=== PATIENT | female | born 1940 | race Caucasian/White ===

== ENCOUNTER 2023-09-02 14:17 | Inpatient (IN) | payer MEDICARE, OTHER, SELFPAY ==
[2023-09-02] VITALS (10 sets, daily range): BP systolic 126–157; BP diastolic 66–83; BMI 24.0; BMI 22.3
--- NOTE | 2023-09-02 09:57 | ED.GENMED ---
History of Present Illness
General
Chief Complaint: Heart Rate Problem
Source: patient and ambulance crew
Time Seen by Provider: 09/02/23 09:48
History of Present Illness
History of Present Illness:
83-year-old female with unknown past medical history from her assisted living facility for evaluation after her heart monitor reportedly showed 2 separate events of bradycardia this morning measuring around 30 bpm. Patient states she did not have
any symptoms this morning but did today she had chest discomfort last night but that this occurred while eating and that she normally has a history of dysphagia and pain in her chest/abdomen when swallowing. Patient notes she does not have any
symptoms now other than feeling that she needs to move her bowels. It is unclear as to why patient was wearing a heart monitor as she is not able to tell me who her aquatic performer is or why she had this placed in the first place.
Past History
Social History
Tobacco: Non-smoker
Alcohol: None
Drug: None
Living: assisted living
Review of Systems
Review of Systems
All Other Systems: ROS reviewed and negative except as documented in HPI and ROS
Phy Exam
Physical Exam
Physical Exam:
GENERAL: Alert , in no apparent distress
EYE: Clear conjunctiva
NECK: Supple
ENT: o/p clr, mmm.
CARDIAC: Irregular rate and rhythm, rate between the 60s and 70s
LUNGS: Clear breath sounds bilaterally, no acute respiratory distress, no wheezes/rales/rhonchi
ABDOMEN: Soft, without focal tenderness, no r/g, no cvat
NEUROLOGICAL: Alert and oriented x 3
SKIN: Warm and dry, skin intact.
MUSCULOSKELETAL: Bilateral lower extremity lymphedema is is chronic per patient, well perfused.
PSYCH: Normal and appropriate interaction.
Scores
Heart Failure Risk
Heart Failure Risk Score: Not Applicable
Heart Score for Chest Pain Patients
STEMI patient?: Not applicable
Withdrawal Assessment of Alcohol
Withdrawal Assessment Completed?: Not applicable
Course
Orders/Labs/Results
Orders:
Orders
09/02/23 09:56
Electrocardiogram (*1) Urgent
Reason for Study: Bradycardia / Tachycardia
EKG- Treatment ONCE
09/02/23 10:12
Complete Blood Count/With Diff Urgent
Comprehensive Metabolic Panel Urgent
Magnesium Urgent
Troponin I Urgent
09/02/23 10:58
TSH Urgent
Abnormal Lab Results
09/02/23
10:12
RBC 3.60 L 10^6/uL
(4.20-5.40)
Hgb 10.8 L g/dL
(12.0-16.0)
Hct 32.0 L %
(37.0-47.0)
Plt Count 561 H 10^3/uL
(130-400)
Abs Immat Gran (auto) 0.2 H 10^3/uL
(0-0.05)
Absolute Monos (auto) 1.0 H 10^3/uL
(0.1-0.6)
Immature Gran % 1.8 H %
(0-0.5)
Monocytes % 11.3 H %
(1.7-9.3)
Sodium 126 L mmol/L
(135-145)
Chloride 92 L mmol/L
(98-107)
Alkaline Phosphatase 449 H U/L
(38-126)
Total Protein 5.5 L g/dl
(6.3-8.2)
Albumin 2.8 L g/dl
(3.5-5.0)
09/02/23 10:12
09/02/23 10:12
Vital Signs
Initial and Last Documented VS:
Initial Vital Signs
BP
136/66
09/02/23 09:48
Last Documented Vital Signs
Temp Pulse Resp BP Pulse Ox
98.1 F 79 19 126/73 94
09/02/23 09:49 09/02/23 12:00 09/02/23 12:00 09/02/23 11:00 09/02/23 12:00
MDM/Problems Addressed
Differential Diagnosis Includes:
Cardiac dysrhythmia, valvular dysfunction, electrolyte disturbance, less concern for infectious etiology
MDM/Problems Addressed:
83-year-old female presenting the emergency department via EMS from shelter for evaluation of 2 separate episodes of bradycardia that reportedly occurred this morning according to patient's ZIO quality assurance monitor body. Patient was supposedly
asymptomatic this morning. Had questionable chest discomfort last night. No family at bedside presently to gather further history or information about patient's quality assurance monitor body. Will check labs, EKG and attempt to contact family to figure out
further care for patient.
*Pulse Oximetry
Patient hypoxic: no
*Immunochemist Interpretation
Rate: normal
*Critical Care Note
Total Time (30-74mins, 75-104mins- exclusive of procedures): Not Applicable
Patient Management
Discussion with other providers: Hospitalist and Claim Rep
Escalation/DeEscalation of care consider admission/obs:
11:33 AM: Patient's daughter is now at the bedside. Patient was admitted at [facility] 2 weeks ago with severe lower back pain. Was found to have a sacral fracture and while admitted was also found to have episodes of bradycardia so was
fitted for the ZIO heart monitor on . Daughter received a call from aquatic performer at [facility] cardiology that patient had 2 separate episodes of complete heart block, 1 lasting 7 minutes and another 2-minute and that the aquatic performer
recommended the patient to come to [place] for likely pacemaker placement. Will contact cardiology here to help with patient's further treatment and disposition planning.
11:45 AM: Spoke to cardiology team who is requesting patient be admitted to hospitalist service given her other medical conditions and will evaluate the patient today. Hospitalist team is aware and accepts for continued evaluation and treatment.
ED Attending Note
-
Portions of this chart may have been created with voice recognition software.� Occasional wrong word or��sound alike� substitutions may have occurred due to the inherent limitations of voice recognition software.
Discharge Plan
Departure
Patient Disposition: Admit
Date of Disposition: 09/02/23
Time of Disposition: 11:51
Presentation/result/management discussed w/ accepting MD/DO: Hospitalist
Discharge Problem:
Bradycardia
Prescriptions:
No Action
multivitamin [Daily-Maribel] Tablet
1 tab PO DAILY
atorvastatin [Lipitor] 40 mg Tablet
40 mg PO DAILY
methocarbamol 500 mg Tablet
500 mg PO QID
acetaminophen [Tylenol] 325 mg Tablet
650 mg PO Q6HPRN PRN (Reason: mild pain)
lidocaine 4 % Adhesive Patch,Medicated
1 patch TOPICAL DAILY
albuterol sulfate 2.5 mg /3 mL (0.083 %) Solution For Nebulization
2.5 mg INHALATION R Q6HPRN PRN (Reason: sob)
polyethylene glycol 3350 [Miralax] 17 gram Powder In Packet
17 g PO DAILY
polyethylene glycol 3350 [Miralax] 17 gram Powder In Packet
17 g PO DAILYPRN PRN (Reason: if no bm in 72 hours)
sucralfate 100 mg/mL Suspension
10 ml PO TID
cyanocobalamin (vitamin B-12) 1,000 mcg Tablet
1,000 mcg PO DAILY
clopidogrel [Plavix] 75 mg Tablet
75 mg PO DAILY
acetaminophen [Tylenol Extra Strength] 500 mg Tablet
1,000 mg PO Q6HPRN PRN (Reason: mild pain)
magnesium hydroxide [Milk of Magnesia] 400 mg/5 mL Suspension
2,400 mg PO [id number] PRN (Reason: if no bm by 3rd day)
bisacodyl [Dulcolax (bisacodyl)] 10 mg Suppository
10 mg VT DAILYPRN PRN (Reason: if no bm aftr mom)
pantoprazole [Protonix] 40 mg Tablet,Delayed Release (Dr/Ec)
40 mg PO BID
Fleet Enema 19-7 gram/118 mL Enema
118 ml VT DAILYPRN PRN (Reason: if no bm aftr dulcolax)
docusate sodium [Colace] 100 mg Capsule
100 mg PO DAILY
ondansetron [Zofran ODT] 4 mg Tablet,Disintegrating
4 mg PO Q4HPRN PRN (Reason: nausea)
cholecalciferol (vitamin D3) [Vitamin D3] 25 mcg (1,000 unit) Tablet
25 mcg PO DAILY
morphine concentrate 20 mg/mL Syringe
2.5 mg PO Q4HPRN PRN (Reason: increased resppiratory effort)
tramadol 25 mg Tablet
25 mg PO TID
Referrals:
Maya Mendez NP [Family Provider] -
Interventions
Interventions:
*Risk Screen - Suicide Last Done: 09/02/23 09:49
*General Assessment Last Done: 09/02/23 09:49
*Neglect/Abuse Screening Last Done: 09/02/23 09:49
ED- Fall Risk Assessment Last Done: 09/02/23 11:41
*ED COVID-19 Vaccine History Last Done: 09/02/23 09:49
ED- Cardiac Assessment Last Done: 09/02/23 10:13
ED- Pulmonary Assessment Last Done: 09/02/23 10:13
Discharge Date and Time
Print Language: PORTUGUESE
[2023-09-02 10:26] LABS: % Basophils 0.5 % (0-2); % Eosinophils 1.8 % (0-6); % Immature Granulocytes 1.8 % (0-0.5); % Lymphocytes 30.6 % (20.5-51.1); % Monocytes 11.3 % (1.7-9.3); Absolute Eosinophils 0.2 10^3/uL (0-0.7); Absolute Immature Granulocytes 0.2 10^3/uL (0-0.05); Absolute Lymphocytes 2.6 10^3/uL (1.2-3.4); Absolute Neutrophils 4.6 10^3/uL (1.4-6.5); Hemoglobin 10.8 g/dL (12.0-16.0); Mean Corp Hgb Conc. 33.8 g/dL (33.0-37.0); Mean Corpuscular Volume 88.9 fL (81.0-99.0); Mean Platelet Volume 8.9 fL (7.4-10.4); Nucleated Red Blood Cells % 0 %; Platelet Count 561 10^3/uL (130-400); Red Cell Dist. Width 13.3 % (11.5-14.5); White Blood Cell Count 8.4 10^3/uL (4.8-10.8)
[2023-09-02 10:38] LABS: ALT (SGPT) 30 U/L (0-35); AST (SGOT) 30 U/L (14-36); Albumin 2.8 g/dl (3.5-5.0); Alkaline Phosphatase 449 U/L (38-126); Blood Urea Nitrogen 16 mg/dl (7-17); Calcium 8.6 mg/dl (8.4-10.2); Carbon Dioxide 28 mmol/L (22-30); Chloride 92 mmol/L (98-107); Estimated Creatinine Clearance 54 ml/min; Glucose 96 mg/dl (70-99); Magnesium 2.3 mg/dl (1.6-2.3); Potassium 4.7 mmol/L (3.5-5.1); Sodium 126 mmol/L (135-145); Total Bilirubin 0.4 mg/dl (0.2-1.3); Total Protein 5.5 g/dl (6.3-8.2); eGFR > 60.00
[2023-09-02 10:43] LABS: Troponin I < 0.012 ng/ml
[2023-09-02 11:48] LABS: TSH 1.45 uIU/ml (0.47-4.68)
--- NOTE | 2023-09-02 14:03 | HPS.HSE ---
Family Physician
-
Family Physician: Maya Mendez NP
Chief Complaint
-
Bradycardia
History of Present Illness
82-year-old female with past medical history of lymphedema, GERD, Camacho's esophagus, hiatal hernia, PUD, recent sacral fracture came to the hospital from rehab at [facility] for evaluation of her bradycardia. Majority of the history is taken from
the daughter at bedside. Patient was recently admitted at [facility] after a fall with sacral fracture. While patient was there in the hospital patient had periods of bradycardia with possible Mobitz 1 or 2 heart block. Patient was seen
by cardiology there and had a stress test which was concerning for CAD. Patient did not get any cardiac catheterization and was put on Plavix by cardiology. Patient was instructed to follow-up with electrophysiology at [place] outpatient for
possible need for pacemaker. Patient then got ZIO monitor outpatient which last night showed the patient was in complete heart block twice. [facility] cardiology called patient's daughter and instructed her to bring patient to [facility] for
pacemaker placement. Patient at this time denies any chest pain however earlier did have discomfort. Denies any dizziness.
Medical History
Past Medical History
Past Medical History: Reports CAD, GERD and Hypercholesterolemia
Past Surgical History: Reports None
Social History
Tobacco: Non-smoker
Family History
Family History: Not pertinent
Allergies / Home Medications
Allergies reflects when Allergies were last updated in [facility].
Home Medications with original date entered in [facility]
Allergy/Medication List:
Allergies
Allergy/AdvReac Type Severity Reaction Status Date / Time
bee venom protein (honey bee) Allergy Unknown Verified 09/02/23 09:58
codeine Allergy Unknown Verified 09/02/23 09:58
gabapentin Allergy Unknown Verified 09/02/23 09:58
ibuprofen Allergy Unknown Verified 09/02/23 09:58
latex Allergy Unknown Verified 09/02/23 09:58
naproxen Allergy Unknown Verified 09/02/23 09:58
piroxicam Allergy Unknown Verified 09/02/23 09:58
topiramate Allergy Unknown Verified 09/02/23 09:58
polyurethane Allergy Unknown Uncoded 09/02/23 09:58
Home Medications
acetaminophen 325 mg tablet (Tylenol) 650 mg PO Q6HPRN PRN mild pain 09/02/23
acetaminophen 500 mg tablet (Tylenol Extra Strength) 1,000 mg PO Q6HPRN PRN mild pain 09/02/23
albuterol sulfate 2.5 mg/3 mL (0.083 %) solution for nebulization 2.5 mg inhalation R Q6HPRN PRN sob 09/02/23
atorvastatin 40 mg tablet (Lipitor) 40 mg PO DAILY 09/02/23
bisacodyl 10 mg rectal suppository (Dulcolax (bisacodyl)) 10 mg SD DAILYPRN PRN if no bm aftr mom 09/02/23
cholecalciferol (vitamin D3) 25 mcg (1,000 unit) tablet (Vitamin D3) 25 mcg PO DAILY 09/02/23
clopidogrel 75 mg tablet (Plavix) 75 mg PO DAILY 09/02/23
cyanocobalamin (vitamin B-12) 1,000 mcg tablet 1,000 mcg PO DAILY 09/02/23
docusate sodium 100 mg capsule (Colace) 100 mg PO DAILY 09/02/23
lidocaine 4 % topical patch 1 patch topical DAILY sacrum 09/02/23
magnesium hydroxide 400 mg/5 mL oral suspension (Milk of Magnesia) 2,400 mg PO [id number] PRN if no bm by 3rd day 09/02/23
methocarbamol 500 mg tablet 500 mg PO QID 09/02/23
morphine concentrate 20 mg/mL oral syringe (FOR ORAL USE ONLY) 2.5 mg PO Q4HPRN PRN increased resppiratory effort 09/02/23
multivitamin (Daily-Maribel tablet) 1 tab PO DAILY 09/02/23
ondansetron 4 mg disintegrating tablet 4 mg PO Q4HPRN PRN nausea 09/02/23
pantoprazole 40 mg tablet,delayed release (Protonix) 40 mg PO BID 09/02/23
polyethylene glycol 3350 17 gram oral powder packet (Miralax) 17 g PO DAILY 09/02/23
polyethylene glycol 3350 17 gram oral powder packet (Miralax) 17 g PO DAILYPRN PRN if no bm in 72 hours 09/02/23
sodium phosphates 19 gram-7 gram/118 mL enema (Fleet Enema) 118 ml SD DAILYPRN PRN if no bm aftr dulcolax 09/02/23
sucralfate 100 mg/mL oral suspension 10 ml PO TID 09/02/23
tramadol 25 mg tablet 25 mg PO TID 09/02/23
Review of Systems
-
History Source: Patient
A 12 point ROS was completed and negative except as noted: Yes
Physical Exam
Vital Signs
Vital Signs
Temp Pulse Resp BP Pulse Ox
98.1 F 69 20 130/83 94
09/02/23 09:49 09/02/23 13:30 09/02/23 13:30 09/02/23 13:00 09/02/23 13:30
Physical Exam
General: No Apparent Distress and Comfortable
HEENT: Anicteric and Moist mucous membranes
Respiratory: Clear and Non Labored Respirations; No Wheezes
Cardiac: S1/S2; No Murmur
Breast: Deferred by me
GI: Soft, Non Tender, Non Distended and Normal Bowel Sounds
Rectal: Deferred by Provider
Musculoskeletal: No Edema
Neuro: Awake, Alert, Oriented and AO x 3
Psych: Calm and Intact Judgment/Insight
Laboratory Results
-
09/02/23 10:12
09/02/23 10:12
Laboratory Results
Total Bilirubin 0.4 mg/dl (0.2-1.3) 09/02/23 10:12
AST 30 U/L (14-36) 09/02/23 10:12
ALT 30 U/L (0-35) 09/02/23 10:12
Alkaline Phosphatase 449 U/L (38-126) H 09/02/23 10:12
Troponin I < 0.012 ng/ml 09/02/23 10:12
Data Reviewed
-
Lab Data: Labs Reviewed by me, Discussed with Patient and Discussed with Family
Impression/Plan
-
Bradycardia concerning for complete heart block
Outpatient ZIO monitor had couple episodes of complete heart block
EP to evaluate today
N.p.o. for now
Admit to IVU
Recent stress test concerning for CAD, on Plavix. Discussed with cardiology, okay with Plavix. Will continue
trend trops
Follows up with [facility] cardiology
Hyponatremia
Check urine and serum studies
Gentle hydration for now
If does not improve then will need nephrology evaluation
Recent Pelvic fracture
Recent admission for this at [facility], x-ray 08/21 with sacral fracture
PT/OT when okay with EP
monitor
pain control
History of GERD/Camacho's esophagus
Continue PPI, Carafate
History of PAD
History of hiatal hernia
HLD
DVTppx
SCD's
Full code; confirmed on admission
I spent a total of 78 minutes with the patient or on the floor. More than 50% of this time involved counseling and coordination of care.
[2023-09-02 15:24] LABS: Osmolality Serum 273 mOsm/kg (275-300)
[2023-09-02 15:46] LABS: Osmolality Urine 200 mOsm/kg (300-900)
[2023-09-02 15:53] LABS: Urine Sodium 28 mmol/L (30-90)
--- NOTE | 2023-09-02 16:24 | PTCARENOTE ---
Patient admitted from ED with CHB to 2246. Presently in SR with occasional PAC's, Dr. Carmichael in to see the patient and spoke with the family. In review of telemetry in ED, noted mobitz II heart block. Patient to be NPO in the AM for probable ppm.
Oriented to room and plan of care, call burgess within reach.
[2023-09-02 17:00] LABS: Sodium 127 mmol/L (135-145)
[2023-09-02 17:15] LABS: Troponin I < 0.012 ng/ml
--- NOTE | 2023-09-02 17:25 | CON.CAR ---
Consultation
Consultation Request
Date/Time Consultation Requested: 09/02/2023 at 1403 hrs.
Date/Time Consultation Performed: 09/02/2023 at approximately 1600 hrs.
Requesting Provider: Be Faye MD
Performing Provider: Benjie Carmichael MD
Reason for Consultation: Heart block, paroxysmal
Medical History
-
Chief Complaint: Complete heart block found on outpatient telemetry
History of Present Illness:
Log Roller: [facility] Cardiology, Dr. Ceci Doshi cared for the patient recently
Thank you for having me see Ness Gonzáles today. Her tape editor's at [facility], [facility] Cardiology told the patient to come to our hospital for pacemaker implantation. I spoke to her tape editor Dr. Ceci Doshi who works part-time
with the [facility] cardiology group. She is not aware of the results of the outpatient cardiac telemetry but is familiar with her inpatient course with periods of AV block were seen. She tells me that an echo was unremarkable and a stress test
showed some angina with dobutamine but no definite wall motion abnormality. The patient has not had pollo syncope or near syncope but there is a concerning episode where she fell out of bed under uncertain circumstances perhaps 1-2 months ago.
Her EKG is concerning for prior inferior SC and possible prior anterior SC but that apparently was not confirmed on echo and stress test.
She was at [facility] for evaluation of pain and was found to have a sacral fracture. During this time her resting heart rate was in the 30s and 40s and periods of heart block were identified. She was sent out with telemetry and heart
block was quickly found again.
Past Medical History
Past Medical History: CAD (Abnormal stress test (CP with dobutamin and abnl EKG, possible CAD. Clopidogrel added.) and Other (Osteopenia and osteoporosis, CKD 3, chronic lymphedema, GERD with hiatal hernia)
Social History
Tobacco: Non-Smoker
Living: Other (Family present at bedside)
Family History
Family History: Other (No first-degree relatives with premature CAD)
Allergies / Home Medications
Allergy/AdvReac Type Severity Reaction Status Date / Time
bee venom protein (honey bee) Allergy Unknown Verified 09/02/23 09:58
codeine Allergy Unknown Verified 09/02/23 09:58
gabapentin Allergy Unknown Verified 09/02/23 09:58
ibuprofen Allergy Unknown Verified 09/02/23 09:58
latex Allergy Unknown Verified 09/02/23 09:58
naproxen Allergy Unknown Verified 09/02/23 09:58
piroxicam Allergy Unknown Verified 09/02/23 09:58
topiramate Allergy Unknown Verified 09/02/23 09:58
polyurethane Allergy Unknown Uncoded 09/02/23 09:58
�Medication �Instructions �Recorded �Confirmed �Type
acetaminophen 325 mg tablet 650 mg PO Q6HPRN PRN mild pain 09/02/23 09/02/23 History
(Tylenol)
acetaminophen 500 mg tablet 1,000 mg PO Q6HPRN PRN mild pain 09/02/23 09/02/23 History
(Tylenol Extra Strength)
albuterol sulfate 2.5 mg/3 mL 2.5 mg inhalation R Q6HPRN PRN sob 09/02/23 09/02/23 History
(0.083 %) solution for nebulization
atorvastatin 40 mg tablet (Lipitor) 40 mg PO DAILY 09/02/23 09/02/23 History
bisacodyl 10 mg rectal suppository 10 mg CO DAILYPRN PRN if no bm 09/02/23 09/02/23 History
(Dulcolax (bisacodyl)) aftr mom
cholecalciferol (vitamin D3) 25 25 mcg PO DAILY 09/02/23 09/02/23 History
mcg (1,000 unit) tablet (Vitamin
D3)
clopidogrel 75 mg tablet (Plavix) 75 mg PO DAILY 09/02/23 09/02/23 History
cyanocobalamin (vitamin B-12) 1,000 mcg PO DAILY 09/02/23 09/02/23 History
1,000 mcg tablet
docusate sodium 100 mg capsule 100 mg PO DAILY 09/02/23 09/02/23 History
(Colace)
lidocaine 4 % topical patch 1 patch topical DAILY sacrum 09/02/23 09/02/23 History
magnesium hydroxide 400 mg/5 mL 2,400 mg PO [id number] PRN if no bm 09/02/23 09/02/23 History
oral suspension (Milk of Magnesia) by 3rd day
methocarbamol 500 mg tablet 500 mg PO QID 09/02/23 09/02/23 History
morphine concentrate 20 mg/mL oral 2.5 mg PO Q4HPRN PRN increased 09/02/23 09/02/23 History
syringe (FOR ORAL USE ONLY) resppiratory effort
multivitamin (Daily-Maribel tablet) 1 tab PO DAILY 09/02/23 09/02/23 History
ondansetron 4 mg disintegrating 4 mg PO Q4HPRN PRN nausea 09/02/23 09/02/23 History
tablet
pantoprazole 40 mg tablet,delayed 40 mg PO BID 09/02/23 09/02/23 History
release (Protonix)
polyethylene glycol 3350 17 gram 17 g PO DAILY 09/02/23 09/02/23 History
oral powder packet (Miralax)
polyethylene glycol 3350 17 gram 17 g PO DAILYPRN PRN if no bm in 09/02/23 09/02/23 History
oral powder packet (Miralax) 72 hours
sodium phosphates 19 gram-7 118 ml CO DAILYPRN PRN if no bm 09/02/23 09/02/23 History
gram/118 mL enema (Fleet Enema) aftr dulcolax
sucralfate 100 mg/mL oral 10 ml PO TID 09/02/23 09/02/23 History
suspension
tramadol 25 mg tablet 25 mg PO TID 09/02/23 09/02/23 History
Review of Systems
-
Constitutional: Fatigue
EENT: No Symptoms
Respiratory: No Symptoms
Musculoskeletal: Other (Severe sacral pain from a fracture)
Physical Exam
Vital Signs
Temp Pulse Resp BP Pulse Ox
98.1 F 79 20 157/79 96
09/02/23 09:49 09/02/23 17:00 09/02/23 15:15 09/02/23 15:40 09/02/23 15:40
Lab Results
09/02/23 10:12
09/02/23 16:44
Troponin I < 0.012 ng/ml 09/02/23 16:44
Physical Exam
General: Well Developed and Well Nourished
HEENT: Normocephalic and Anicteric
Respiratory: Clear
Cardiac: S1/S2, Regular Rhythm and Other (No murmur)
GI: Soft, Non Tender and Non Distended
Skin: Warm and Dry
Neuro: AO x 3
Psych: Calm
Impression / Plan
-
Mobitz 2 second-degree heart block despite narrow QRS
Periods of paroxysmal complete heart block documented on outpatient telemetry, strips have been requested
Abnormal EKG suggesting prior inferior SC and possible prior anterior infarct. The recent echocardiogram and stress test reports have been requested. She likely has underlying CAD
Recent fall from bed under uncertain circumstances. I cannot confirm that this was a syncopal episode but I think we need to be suspicious here
Sacral/pelvic fracture with pain
Mild anemia
Hyponatremia
GERD with hiatal hernia
We will obtain an echocardiogram here. We will obtain records of her cardiac personnel monitor, recent stress test, and recent echocardiogram from the [facility] Cardiology team.
I feel the patient will benefit from pacemaker implantation given the demonstrated Mobitz 2 heart block here and prior heart block in the outpatient setting and a [facility]
I will defer evaluation of hyponatremia and mild anemia to the hospitalist and the outpatient team
Data Reviewed
-
EKG: Tracing Personally Visualized and interpreted (NSR 74 bpm. QRS 76 ms. Inferior Q waves with minimal ST elevation suggesting age indeterminant inferior wall myocardial infarction deep Q waves in leads II, III and aVF. There is poor R wave
progression anterior septal SC cannot be excluded. May be related to LVH and left axis deviation) and Other (I reviewed ER telemetry. Her dropped P waves and a Mobitz 2 pattern. No evidence of Wenckebach)
Labs: Discussed with Physician (I spoke with the tape editor Nelly Deshpande who cared for the patient recently [facility]: Echo was unremarkable; stress test showed angina with dobutamine but no wall motion abnormality) and Discussed with
Family (Family says that they were told that the patient monitor she the patient is wearing showed a 7-minute and then a 2-minute period of complete heart block)
Total Time Spent with Patient (in minutes): 78 min: Patient family time. Review records. Discuss with team
[2023-09-02] MEDS: NSS 1000 IV (17:30)
[2023-09-02] MEDS: CARAFATE SUSPENSION 1 GM PO ×2 (19:03→23:04)
[2023-09-02] MEDS: TYLENOL 650 MG PO (19:05)
[2023-09-02] MEDS: ULTRAM 25 MG PO (20:23)
[2023-09-02] MEDS: PROTONIX 40 MG PO (20:23)
--- NOTE | 2023-09-02 21:05 | PTCARENOTE ---
Assumed care. Patient AO x3, forgetful at times. Patient with left hip pain. Medicated with Tylenol for pain. Incontinent of small amount of stool, purwcik changed. Bed rest maintained. NSR on tele, IVF infusing at 80/hr. Call burgess in reach
[2023-09-02 23:50] LABS: Troponin I < 0.012 ng/ml
[2023-09-03] VITALS (15 sets, daily range): BP systolic 130–179; BP diastolic 62–130
[2023-09-03 03:55] LABS: % Basophils 0.7 % (0-2); % Eosinophils 2.3 % (0-6); % Immature Granulocytes 1.5 % (0-0.5); % Lymphocytes 35.4 % (20.5-51.1); % Monocytes 10.6 % (1.7-9.3); % Neutrophils 49.5 % (42.2-75.2); Absolute Basophils 0.1 10^3/uL (0-0.2); Absolute Eosinophils 0.2 10^3/uL (0-0.7); Absolute Immature Granulocytes 0.1 10^3/uL (0-0.05); Absolute Lymphocytes 2.9 10^3/uL (1.2-3.4); Absolute Monocytes 0.9 10^3/uL (0.1-0.6); Hematocrit 33.6 % (37.0-47.0); Hemoglobin 10.9 g/dL (12.0-16.0); Mean Corp Hgb Conc. 32.4 g/dL (33.0-37.0); Mean Corpuscular Hgb 29.8 pg (27.0-31.0); Mean Corpuscular Volume 91.8 fL (81.0-99.0); Mean Platelet Volume 9.3 fL (7.4-10.4); Nucleated Red Blood Cells % 0 %; Platelet Count 593 10^3/uL (130-400); Red Blood Cell Count 3.66 10^6/uL (4.20-5.40); Red Cell Dist. Width 13.2 % (11.5-14.5); White Blood Cell Count 8.1 10^3/uL (4.8-10.8)
[2023-09-03 04:21] LABS: Blood Urea Nitrogen 13 mg/dl (7-17); Calcium 8.8 mg/dl (8.4-10.2); Carbon Dioxide 29 mmol/L (22-30); Chloride 96 mmol/L (98-107); Estimated Creatinine Clearance 54 ml/min; Glucose 84 mg/dl (70-99); Potassium 4.9 mmol/L (3.5-5.1); Sodium 131 mmol/L (135-145); eGFR > 60.00
[2023-09-03] MEDS: NSS 1000 IV (05:35)
--- NOTE | 2023-09-03 05:35 | PTCARENOTE ---
CHG wipes to chest complete. [place]wick, grossly incontinent of urine. NPO since midnight
[2023-09-03] MEDS: TYLENOL 650 MG PO ×2 (06:25→19:27)
[2023-09-03] MEDS: ROXANOL ORAL CONCENTRATE 2.5 MG PO (06:35)
--- NOTE | 2023-09-03 06:45 | PTCARENOTE ---
Patient with lower back pain 8 out of 10. Morphine and Tylenol given.
--- NOTE | 2023-09-03 07:20 | W.PN.CD ---
Today's Communication / Plan
-
- PPM today
Impression / Plan
-
Mobitz 2 second-degree heart block despite narrow QRS
- Periods of paroxysmal complete heart block documented on outpatient telemetry
- PPM placement planned for today
- ECHO done today 09/03/23 showed LVEF of 70% with moderate to severe mitral stenosis.
- Moderate MR
- calcified mitral valve - likely causing infra hisian conduction damage
Abnormal EKG suggesting prior inferior OR and possible prior anterior infarct. The recent echocardiogram and stress test reports have been requested. She likely has underlying CAD
Recent fall from bed under uncertain circumstances. I cannot confirm that this was a syncopal episode but I think we need to be suspicious here
Sacral/pelvic fracture with pain
Mild anemia
Hyponatremia
GERD with hiatal hernia
Plan for dual chamber PPM today
Physical Exam
Vital Signs/Labs
Vital Signs
Temp Pulse Resp BP Pulse Ox
98.3 F 82 16 130/62 95
09/03/23 07:07 09/03/23 04:45 09/03/23 07:07 09/03/23 03:04 09/03/23 07:07
09/02/23 09/03/23 09/04/23
06:59 06:59 06:59
Actual Weight 53.569 kg
09/03/23 03:11
09/03/23 03:11
Magnesium 2.3 mg/dl (1.6-2.3) 09/02/23 10:12
TSH 1.45 uIU/ml (0.47-4.68) 09/02/23 10:58
LAB Results
09/02/23 09/02/23 09/02/23
10:12 16:44 23:12
Troponin I < 0.012 < 0.012 < 0.012
Physical Exam
Constitutional: No acute distress and Comfortable
EENT: Anicteric and Moist mucous membranes
Cardiovascular: Rhythm & rate is regular, Pedal edema is absent, JVD pressure is normal, Systolic murmur present and Diastolic murmur present
Respiratory: Respiratory effort normal, Crackles Present and Rhonchi Present
GI: Soft, Non tender and Normal bowel sounds
Neuro/Psych: Alert, Oriented and AO x 3
Data Reviewed
-
Date of Service: September 03, 2023
Medical Decision Making: Reviewed Test Results, Independent Historian Assessment and Test Interpretation
EKG: Tracing Personally Visualized and interpreted
Echo: Tracing Personally Visualized and interpreted and Report Reviewed by me
Labs: Labs Reviewed by me
Old Records: Reviewed
[2023-09-03] MEDS: ULTRAM 25 MG PO ×3 (08:08→23:05)
[2023-09-03] MEDS: COLACE PO (08:20)
[2023-09-03] MEDS: CARAFATE SUSPENSION PO ×2 (08:20→12:53)
--- NOTE | 2023-09-03 09:12 | PTCARENOTE ---
Assumed careof pt from night RN. Pt received awake and alert, Ox3. VSs, Ox3 but forgetful, CM shows NSR 70's, POX 95% on RA. Pt remains NPO for PPM insertion today. NS infusing through RH at 80ml's/hr. Purewick intact. Will monitor closely.
--- NOTE | 2023-09-03 10:46 | PTCARENOTE ---
Ativan 1 mg given as per MAR for MRI.
--- NOTE | 2023-09-03 11:44 | CM ---
Reviewed chart. Met with Mrs. Gonzáles to review discharge plans. She states prior to admission she was at [facility] for SNF/Rehab. She states she normally resides alone in a one story home with two steps to enter. She states prior to
admission she ambulated with a rolling walker or single point cane. She states she has a rolling walker, single point cane and wheelchair at home. She states she has a prescription plan and uses [facility]. Telephone call to [facility]
Admission to check on bed status. Left message. Will need to see her current functional status to see if she will have any skilled care needs. She will need physical and occupational therapy evaluations. Medical work-up in progress. The discharge
plan is to return to SNF/Rehab. at [facility] when medically stable.
[2023-09-03] MEDS: MIRALAX PO (12:52)
[2023-09-03] MEDS: LIDOCAINE 4% PATCH TOPICAL (12:53)
--- NOTE | 2023-09-03 13:58 | PTCARENOTE ---
Pt to CCL for PPM, report given to CCL staff.
--- NOTE | 2023-09-03 14:00 | W.PN.HOSP.TC ---
Today's Communication/Plan
-
Monitor vital signs and see plan
Plan for pacemaker today
Monitor sodium
Assessment / Plan
Assessment / Plan
General: No Apparent Distress and Comfortable
HEENT: Anicteric and Moist mucous membranes
Respiratory: Clear and Non Labored Respirations; No Wheezes
Cardiac: S1/S2; No Murmur
GI: Soft, Non Tender, Non Distended and Normal Bowel Sounds
Musculoskeletal: No Edema
Neuro: Awake, Alert, Oriented and AO x 3
Psych: Calm and Intact Judgment/Insight
Suspect Mobitz 2 second-degree heart block
Outpatient ZIO monitor had couple episodes of complete heart block, cardiology requested strips. Appears patient has periods of Mobitz 2 second-degree heart block
Cardiology following
N.p.o. for now per cards; plan for possible pacemaker
Recent stress test concerning for CAD, on Plavix. Discussed with cardiology, okay with Plavix. Will continue
Trope negative
Follows up with [facility] cardiology
Echo with stage II diastolic dysfunction, normal systolic function without regional wall motion abnormality. Moderate to severe mitral stenosis
Hyponatremia
Sodium now 131
Check urine and serum studies noted
If does not improve then will need nephrology evaluation
Recent Pelvic fracture
Recent admission for this at [place], x-ray 08/21 with sacral fracture
PT/OT when okay with cardiology
monitor
pain control
History of GERD/Camacho's esophagus
Continue PPI, Carafate
History of PAD
History of hiatal hernia
HLD
DVTppx
SCD's
Full code; confirmed on admission
Anticipated Discharge: 24 - 48 hours
Subjective/Interval History
-
Date of Service: September 03, 2023
Denies pain
Objective Data
-
Labs:
Laboratory Results
09/03/23
03:11
WBC 8.1
Hgb 10.9 L
Hct 33.6 L
Plt Count 593 H
Sodium 131 L
Potassium 4.9
Chloride 96 L
Carbon Dioxide 29
BUN 13
Creatinine 0.6
Glucose 84
Calcium 8.8
Vital Signs:
Vital Signs
Temp Pulse Resp BP Pulse Ox
98.3 F 68 16 160/79 97
09/03/23 11:31 09/03/23 12:45 09/03/23 11:31 09/03/23 11:34 09/03/23 11:31
I&O
09/02/23 09/03/23 09/04/23
06:59 06:59 06:59
Intake Total 960 / 960
Output Total 800 / 800
Balance 160 / 160
--- NOTE | 2023-09-03 15:39 | ITS.CL.PACE ---
Aligning Inspector - Pacemaker Implant
Pacemaker Implant
Procedure Report:
Dual Chamber Pacemaker Placement:
Indications: Intermittent complete heart block
Date of the Procedure: 09/03/23
Pre-Operative Diagnosis: Intermittent complete heart block
Post-Operative Diagnosis: Intermittent complete heart block
Procedure Performed: DUAL CHAMBER PACEMAKER IMPLANTATION
Performing Physician:
Marija Linares MD
Assistants:
EP staff
Anesthesia:
See anesthesia report
Pre-operative antibiotics:
Ancef
Detailed Description of the Procedure:
The patient was identified using hospital identification and informed consent obtained for the procedure. The risks were explained including, but not limited to: Bleeding, infection, arrhythmia, stroke, vascular/cardiac/lung puncture, surgery,
pacemaker dependency/device malfunction. All questions were answered.
The patient was brought to the electrophysiology laboratory in stable condition in fasting state. Continuous electrocardiographic and hemodynamic monitoring was initiated.
The initial rhythm was normal sinus rhythm with grade 2 AV block.
A surgical pause and time out was performed immediately prior to the procedure with review of her medical history, recent labs, allergies and medications with site of procedure identified and consent noted in the chart. Antibiotics pre operatively
given. All team members concurred.
The procedure site was meticulously prepared with surgical scrub and allowed to dry with no pooling. Sterile draping was applied to cover the procedure site. The image intensifier was draped with sterile bag and positioned over the patient.
The left infraclavicular region was prepped and draped in the usual sterile fashion. Local anesthesia was administered subcutaneously using 1% lidocaine / Bupivacaine. The left cephalic vein cutdown was performed with an incision at the
delto-pectoral groove, and vascular sheaths were introduced for lead access. These were advanced into the right ventricle and the right atrium.
The right ventricular lead was secured in position with an active fixation technique at the apical septal location.
The RA lead was attached in the right atrial appendage with passive samuel fixation.
There was excellent sensing, pacing, and impedance from the leads, with no diaphragmatic stimulation at 10 V output.�Bovie cautery, antibiotics, and fluoroscopy were used.
The sheaths were withdrawn, and the thresholds remained acceptable. The leads were secured in position at the venous entry site with 0-silk. A pocket was fashioned contiguous to the incision. The electrode terminals were connected to the pulse
generator, which was placed into the pocket. The wound was irrigated thoroughly with antibiotic solution.
The device was anchored to the underlying fascia using 0-silk suture.
The wound was closed in 3 layers using 2-0 V loc then two layers of 4-0 V loc sutures to the dermis. Steri-strips were applied externally and covered with Aquacel bandage.
Procedure End:
The procedure was tolerated well.
Estimated Blood loss:
5 cc
Specimens Removed:
No cultures and no specimens were obtained. No intraoperative pathology was identified.
Fluoro time:
1.6 min / 2.2mGy
Urine output:
None
Packs / Drains/ Tubes:
None
Instrument / Sponge Count Correct:
Yes
Complications of the Procedure:
None
Condition of Patient at Time of Transfer:
Hemodynamically stable with no neurological or vascular compromise.
Device information:�
Generator: Bleachers; Model: [id number]; Serial # [id number]�
Atrial Lead:
Bleachers; Model: 4574-45; Serial # [id number]
Measured data in the right atrium was sensing of 3.0 mV, impedance of 609 ohms and threshold of 0.75 V at 0.4ms.
RV Lead:
[employer]; Model: 5076-52; Serial # [id number]
Measured data in the RV lead was sensing of 6.8mV, impedance of 1102 ohms and threshold of 1.0 V at 0.4ms�
Brett parameter settings were DDDR 60-130 bpm. �
����������� Mode Switch: On
����������� Paced AV interval: 180ms
����������� Sensed AV interval: 150 ms.
����������� Rate Adaptive A-V Interval: Off
Output parameters:
����������������������� Amplitude (V)������������� Pulse Width (ms)������� Sensitivity (mV)
����������� RA: ���� 3.5 ����������������� ����������� 0.4������������������ ����������� 0.3
����������� RV:����� 3.5������������������ ����������� 0.4������������������ ����������� 0.9
Summary:
Successful implantation of MRI compatible dual chamber pacemaker
Results/Recommendations:
-Please follow up CXR�
1. Please provide patient with adequate pain control�
Instructions to be given to patient:�
- Please follow up with [facility] at [address] [place] [address] ([phone]) to get your wound checked within 14 days of your discharge.
- Do not wet incision site until after it is evaluated at cardiology clinic. No soaking or bath until then. Showers or Sponge baths are OK.�Dab dry the area after a shower.
- Do not lift left elbow above shoulder, particularly with sudden jerking movements, for 1 month�
- Do not lift anything weighing more than 10 pounds with the left arm for 1 month�
- If you notice any fevers, shortness of breath, lightheadedness, chest pain, or worsening swelling in the wound site, please contact the arrhythmia clinic, contact your galvanizing pot runner, or present to the hospital for evaluation.�
Marija Linares MD
Electrophysiology
--- NOTE | 2023-09-03 16:22 | PTCARENOTE ---
Pt received from CCL post PPM insertion. Left arm immobilizer intact. Aquacell dsg to left pacer site remains CDI, pacemaker is a bivi DDDR, settings 60-130. Pt denies any pain or discomfort at this time. Family at bedside.
[2023-09-03] MEDS: CARAFATE SUSPENSION 1 GM PO ×2 (17:06→23:05)
[2023-09-03] MEDS: THERAGRAN 1 TABLET PO (17:07)
[2023-09-03] MEDS: PROTONIX 40 MG PO (17:08)
[2023-09-03] MEDS: VITAMIN D3 (cholecalciferol) 25 MCG PO (17:08)
[2023-09-03] MEDS: VITAMIN B-12 1000 MCG PO (17:08)
[2023-09-03] MEDS: LIPITOR 40 MG PO (17:08)
[2023-09-03] MEDS: PLAVIX 75 MG PO (17:09)
[2023-09-03] MEDS: PROTONIX PO (19:22)
[2023-09-03] MEDS: ANCEF 5 IV (21:33)
[2023-09-04] VITALS (9 sets, daily range): BP systolic 110–141; BP diastolic 69–89; PULSE 81–133; O2SAT 98; BMI 21.5
--- NOTE | 2023-09-04 04:04 | PTCARENOTE ---
Pt AAOx2-3, forgetful at times, and tele monitor shows SR. HR in the 60-80's at rest. VSS. Left anterior chest dressing intact, patient educated on activity restrictions. Immobilizer remains in place. Patients daughter Jessica requesting a copy of
patients discharge paperwork upon d/c. Call burgess in reach, pt helen approp.
[2023-09-04 04:05] LABS: % Basophils 0.4 % (0-2); % Eosinophils 0.1 % (0-6); % Immature Granulocytes 1.6 % (0-0.5); % Monocytes 3.3 % (1.7-9.3); % Neutrophils 76.6 % (42.2-75.2); Absolute Basophils 0.1 10^3/uL (0-0.2); Absolute Immature Granulocytes 0.2 10^3/uL (0-0.05); Absolute Monocytes 0.4 10^3/uL (0.1-0.6); Absolute Neutrophils 8.5 10^3/uL (1.4-6.5); Hematocrit 35.8 % (37.0-47.0); Hemoglobin 11.8 g/dL (12.0-16.0); Mean Corpuscular Hgb 29.2 pg (27.0-31.0); Mean Corpuscular Volume 88.6 fL (81.0-99.0); Mean Platelet Volume 8.8 fL (7.4-10.4); Nucleated Red Blood Cells % 0 %; Platelet Count 596 10^3/uL (130-400); Red Blood Cell Count 4.04 10^6/uL (4.20-5.40); Red Cell Dist. Width 13.1 % (11.5-14.5); White Blood Cell Count 11.1 10^3/uL (4.8-10.8)
[2023-09-04 04:21] LABS: Blood Urea Nitrogen 15 mg/dl (7-17); Calcium 9.3 mg/dl (8.4-10.2); Carbon Dioxide 27 mmol/L (22-30); Chloride 100 mmol/L (98-107); Estimated Creatinine Clearance 46 ml/min; Glucose 112 mg/dl (70-99); Potassium 5.4 mmol/L (3.5-5.1); Sodium 131 mmol/L (135-145); eGFR > 60.00
[2023-09-04] MEDS: ANCEF 5 IV (05:55)
--- NOTE | 2023-09-04 08:26 | W.PN.CD ---
Today's Communication / Plan
-
- PPM is working well.
- Atrially paced this AM. Intermittent V paced rhythm noted.
- Stable for discharge.
- Follow up in [facility] for wound check in 1-2 weeks.
- Then follow up at [place] with primary subscription agent
Impression / Plan
-
Mobitz 2 second-degree heart block despite narrow QRS
- Periods of paroxysmal complete heart block documented on outpatient telemetry
- s/p PPM placement 09/03/23 - dual chamber Medtronic
- ECHO done 09/03/23 showed LVEF of 70% with moderate to severe mitral stenosis.
- Moderate MR
- calcified mitral valve - likely causing infra hisian conduction damage
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 The recent echocardiogram and stress test reports have been requested. She likely has underlying CAD
Recent fall from bed under uncertain circumstances. I cannot confirm that this was a syncopal episode but I think we need to be suspicious here
Sacral/pelvic fracture with pain
Mild anemia
Hyponatremia
GERD with hiatal hernia
wound check in 1-2 weeks then follow locally at local subscription agent.
Physical Exam
Vital Signs/Labs
Vital Signs
Temp Pulse Resp BP Pulse Ox
97.7 F 76 18 138/89 97
09/04/23 07:55 09/04/23 07:55 09/04/23 07:55 09/04/23 03:34 09/04/23 07:55
09/03/23 09/04/23 09/05/23
06:59 06:59 06:59
Actual Weight 53.569 kg 51.573 kg
09/04/23 03:43
09/04/23 03:43
Magnesium 2.3 mg/dl (1.6-2.3) 09/02/23 10:12
TSH 1.45 uIU/ml (0.47-4.68) 09/02/23 10:58
LAB Results
09/02/23 09/02/23 09/02/23
10:12 16:44 23:12
Troponin I < 0.012 < 0.012 < 0.012
Physical Exam
Constitutional: No acute distress and Comfortable
EENT: Anicteric and Moist mucous membranes
Cardiovascular: Rhythm & rate is regular, Pedal edema is absent, JVD pressure is normal, Systolic murmur present and Diastolic murmur present
Respiratory: Respiratory effort normal and Rhonchi Present
GI: Soft, Distention absent, Flat and Non tender
Neuro/Psych: Alert, Oriented and AO x 3
Other: Cardiac Device Site
Data Reviewed
-
Date of Service: September 04, 2023
Medical Decision Making: Reviewed Test Results, Independent Historian Assessment and Test Interpretation
EKG: Tracing Personally Visualized and interpreted
Echo: Tracing Personally Visualized and interpreted
X-Ray/CT/US/MRI/NUC/PET: Image Personally Visualized and interpreted
Labs: Labs Reviewed by me
Old Records: Reviewed
--- NOTE | 2023-09-04 08:55 | PTCARENOTE ---
Rec'd pt AAOx2-3, pt drowsy but arousable & slightly confused to place & mildly forgetful. Thinks she is at her daughter's home. Pt reorients easily. Pt w/LUE immobilizer in place, L chest wall pacer site w/dressing C/D/I. No signs or symptoms of
bleeding or hematoma. Pt reporting no pain at this time. Pt's VS stable. Pt w/call burgess within reach & plan of care ongoing.
[2023-09-04] MEDS: CARAFATE SUSPENSION PO (09:45)
[2023-09-04] MEDS: LIPITOR 40 MG PO (09:45)
[2023-09-04] MEDS: COLACE 100 MG PO (09:45)
[2023-09-04] MEDS: LIDOCAINE 4% PATCH 1 PATCH TOPICAL (09:45)
[2023-09-04] MEDS: VITAMIN D3 (cholecalciferol) 25 MCG PO (09:46)
[2023-09-04] MEDS: ULTRAM 25 MG PO ×3 (09:46→23:18)
[2023-09-04] MEDS: PLAVIX 75 MG PO (09:46)
[2023-09-04] MEDS: MIRALAX 17 GRAMS PO (09:46)
[2023-09-04] MEDS: PROTONIX 40 MG PO ×2 (09:46→20:58)
[2023-09-04] MEDS: THERAGRAN 1 TABLET PO (09:46)
[2023-09-04] MEDS: VITAMIN B-12 1000 MCG PO (09:46)
--- NOTE | 2023-09-04 11:57 | CM ---
Addendum entered by Tami Preston 09/04/23 14:29:
[facility] and [facility] can offer a bed tomorrow. Left message with daughter Jessica regarding available beds.
Original Note:
Reviewed chart. Telephone call to daughter Jessica [facility] to review discharge plans. Daughter would like to explore SNF/Rehab. at the following SNF's: [facility], [facility] Sent referral. Awaiting to see if any bed available. Medical work-up in progress. The discharge plan is to go to SNF/Rehab. when bed available.
--- NOTE | 2023-09-04 13:01 | W.PN.HOSP.TC ---
Today's Communication/Plan
-
Monitor vital signs and see plan
Monitor sodium
Monitor potassium, repeat today
PT/OT; would need SNF
laxatives
Assessment / Plan
Assessment / Plan
General: No Apparent Distress and Comfortable
HEENT: Anicteric and Moist mucous membranes
Respiratory: Clear and Non Labored Respirations; No Wheezes
Cardiac: S1/S2; No Murmur
GI: Soft, Non Tender, Non Distended and Normal Bowel Sounds
Musculoskeletal: No Edema
Neuro: Awake, Alert, Oriented and AO x 3
Psych: Calm and Intact Judgment/Insight
Suspect Mobitz 2 second-degree heart block
Outpatient ZIO monitor had couple episodes of complete heart block, cardiology requested strips. Appears patient has periods of Mobitz 2 second-degree heart block
Cardiology following; s/p PPM 09/02
Recent stress test concerning for CAD, on Plavix. Discussed with cardiology, okay with Plavix. Will continue
Trope negative
Follows up with [facility] cardiology
Echo with stage II diastolic dysfunction, normal systolic function without regional wall motion abnormality. Moderate to severe mitral stenosis
Hyponatremia
Sodium now 131
If does not improve then will need nephrology evaluation
Mild hyperkalemia
Monitor
Recent Pelvic fracture
Recent admission for this at [place], x-ray 08/21 with sacral fracture
PT/OT
monitor
pain control
History of GERD/Camacho's esophagus
Continue PPI, Carafate
History of PAD
History of hiatal hernia
HLD
DVTppx
SCD's
Full code; confirmed on admission
Anticipated Discharge: Within 24 hours
Subjective/Interval History
-
Date of Service: September 04, 2023
denies pain
Objective Data
-
Labs:
Laboratory Results
09/04/23
03:43
WBC 11.1 H
Hgb 11.8 L
Hct 35.8 L
Plt Count 596 H
Sodium 131 L
Potassium 5.4 H
Chloride 100
Carbon Dioxide 27
BUN 15
Creatinine 0.7
Glucose 112 H
Calcium 9.3
Vital Signs:
Vital Signs
Temp Pulse Resp BP Pulse Ox
97.6 F 99 18 141/79 97
09/04/23 10:57 09/04/23 11:00 09/04/23 10:57 09/04/23 10:57 09/04/23 10:57
I&O
09/03/23 09/04/23 09/05/23
06:59 06:59 06:59
Intake Total 960 / 960 240 / 240 480 / 480
Output Total 800 / 800 1500 / 1500 400 / 400
Balance 160 / 160 -1260 / -1260 80 / 80
[2023-09-04] MEDS: CARAFATE SUSPENSION 1 GM PO ×3 (13:20→23:18)
[2023-09-04] MEDS: DULCOLAX 10 MG RECTAL (21:49)
[2023-09-05 01:58] VITALS: BP 134/74
--- NOTE | 2023-09-05 02:15 | PTCARENOTE ---
Patient ambulates w/ RW and requires one assist. Denies any dizziness. Tele remains SR at rest, and tachy w/ ambulation. HR in the 100-120's w/ ambulation. Left anterior chest dressing intact. Patient requires frequent reminders about activity
restrictions d/t forgetfulness. Patient c/o constipation, and having small/smears of BMs. Patient requested suppository. Jose Manuel DON notified, and orders obtained for Dulcolax supp--see MAR for further details. Patient had a moderate size BM.
Patient aware of POC, and can make needs known.
[2023-09-05 02:34] LABS: % Basophils 0.5 % (0-2); % Eosinophils 2.1 % (0-6); % Immature Granulocytes 2.4 % (0-0.5); % Lymphocytes 32.9 % (20.5-51.1); % Monocytes 7.7 % (1.7-9.3); % Neutrophils 54.4 % (42.2-75.2); Absolute Basophils 0.1 10^3/uL (0-0.2); Absolute Eosinophils 0.3 10^3/uL (0-0.7); Absolute Immature Granulocytes 0.3 10^3/uL (0-0.05); Absolute Lymphocytes 4.7 10^3/uL (1.2-3.4); Absolute Monocytes 1.1 10^3/uL (0.1-0.6); Absolute Neutrophils 7.8 10^3/uL (1.4-6.5); Hemoglobin 12.2 g/dL (12.0-16.0); Mean Corp Hgb Conc. 33.9 g/dL (33.0-37.0); Mean Corpuscular Hgb 29.8 pg (27.0-31.0); Mean Platelet Volume 8.8 fL (7.4-10.4); Nucleated Red Blood Cells % 0 %; Platelet Count 570 10^3/uL (130-400); Red Blood Cell Count 4.09 10^6/uL (4.20-5.40); Red Cell Dist. Width 13.2 % (11.5-14.5); White Blood Cell Count 14.3 10^3/uL (4.8-10.8)
[2023-09-05 02:57] LABS: Blood Urea Nitrogen 26 mg/dl (7-17); Calcium 9.5 mg/dl (8.4-10.2); Carbon Dioxide 28 mmol/L (22-30); Chloride 93 mmol/L (98-107); Estimated Creatinine Clearance 40 ml/min; Glucose 104 mg/dl (70-99); Potassium 4.8 mmol/L (3.5-5.1); Sodium 129 mmol/L (135-145); eGFR > 60.00
[2023-09-05] MEDS: TYLENOL 650 MG PO ×2 (03:33→12:01)
[2023-09-05 04:26] VITALS: BMI 21.9
[2023-09-05 07:16] VITALS: BP 147/93
[2023-09-05] MEDS: ULTRAM 25 MG PO ×2 (07:44→15:03)
[2023-09-05] MEDS: PROTONIX 40 MG PO (07:45)
[2023-09-05] MEDS: PLAVIX 75 MG PO (07:45)
[2023-09-05] MEDS: MIRALAX 17 GRAMS PO (07:45)
[2023-09-05] MEDS: COLACE 100 MG PO (07:45)
[2023-09-05] MEDS: CARAFATE SUSPENSION 1 GM PO ×2 (07:45→12:01)
[2023-09-05] MEDS: THERAGRAN 1 TABLET PO (07:45)
[2023-09-05] MEDS: LIDOCAINE 4% PATCH 1 PATCH TOPICAL (07:45)
[2023-09-05] MEDS: LIPITOR 40 MG PO (07:45)
[2023-09-05] MEDS: VITAMIN B-12 1000 MCG PO (07:50)
[2023-09-05] MEDS: VITAMIN D3 (cholecalciferol) 25 MCG PO (07:56)
--- NOTE | 2023-09-05 09:42 | PTCARENOTE ---
Rec'd pt AAOx2-3, mildly confused to place, but able to be reoriented easily. Pt w/no CP or SOB. Pt is c/o bilat LE 'burning pain' this am. Administered scheduled Tramadol as ordered. Pt assisted OOB to [facility]/BSC as needed. Pt anxiously awaiting D/C.
Pt w/call burgess within reach & no addtl needs at this time. Plan of care.
--- NOTE | 2023-09-05 09:48 | CM ---
Addendum entered by Tami Preston 09/05/23 10:43:
Mrs. Gonzáles is ready for transfer to [facility] today. Transfer arrangement or 3:30 with Acute Care Wheelchair van. Updated family, [place] [facility] and RN regarding transfer date and time. The discharge plan is to go to [place]
[facility] when medically stable.
Original Note:
Reviewed chart. Telephone call to daughter, Alissa to confirm choice of SNF bed. Family has selected [facility]. Telephone call to [facility] who confirms they can accept today. The telephone number for report is
([phone]) and fax number is ([phone]) Reviewed wheelchair van and out of pocket cost with daughter. Medical work-up in progress. The discharge plan is to go to [facility] when medically stable.
--- NOTE | 2023-09-05 10:17 | W.PN.HOSP.TC ---
Today's Communication/Plan
-
dc snf
op cards f/u
BMP
Assessment / Plan
Assessment / Plan
General: No Apparent Distress and Comfortable
HEENT: Anicteric and Moist mucous membranes
Respiratory: Clear and Non Labored Respirations; No Wheezes
Cardiac: S1/S2; No Murmur, L chest wall PPM inserted, aquacell dressing,
GI: Soft, Non Tender, Non Distended and Normal Bowel Sounds
Musculoskeletal: No Edema
Neuro: Awake, Alert, Oriented. non focal grossly intact.
Psych: Calm and Intact Judgment/Insight
Suspect Mobitz 2 second-degree heart block
Outpatient ZIO monitor had couple episodes of complete heart block, cardiology requested strips. Appears patient has periods of Mobitz 2 second-degree heart block
Cardiology following; s/p PPM 09/02
Recent stress test concerning for CAD, on Plavix. Discussed with cardiology, okay with Plavix. Will continue
Trope negative
Follows up with [facility] cardiology
Echo with stage II diastolic dysfunction, normal systolic function without regional wall motion abnormality. Moderate to severe mitral stenosis
Hyponatremia
p/w with Na at 126.
Currently at 129.
?SIADH in setting of pain.
OP repeat bmp in 3-5 days at [facility].
Leukocytosis likely 2/2 reactive vs. stress
Remains afebrile
CXR negative
Mild hyperkalemia
resolved.
Recent Pelvic fracture
Recent admission for this at [place], x-ray 08/21 with sacral fracture
PT/OT
monitor
pain control
History of GERD/Camacho's esophagus
Continue PPI, Carafate
History of PAD
History of hiatal hernia
HLD
DVTppx
SCD's
Full code; confirmed on admission
More than 30 minutes spent in discharge including
Final examination of the patient
Summarizing hospital stay
Instructions for continuing care to all relevant caregivers
Preparation of discharge records, prescriptions, and referral forms
Total time spent (in minutes): 45
Anticipated Discharge: Today
Subjective/Interval History
-
Date of Service: September 05, 2023
States of LE burning sensation post cream
denies pain at ppm site
Objective Data
-
Labs:
Laboratory Results
09/05/23
02:17
WBC 14.3 H
Hgb 12.2
Hct 36.0 L
Plt Count 570 H
Sodium 129 L
Potassium 4.8
Chloride 93 L
Carbon Dioxide 28
BUN 26 H
Creatinine 0.8
Glucose 104 H
Calcium 9.5
Vital Signs:
Vital Signs
Temp Pulse Resp BP Pulse Ox
97.9 F 91 20 147/93 95
09/05/23 07:15 09/05/23 08:00 09/05/23 07:15 09/05/23 07:16 09/05/23 07:16
I&O
09/04/23 09/05/23 09/06/23
06:59 06:59 06:59
Intake Total 240 / 240 1200 / 1200
Output Total 1500 / 1500 400 / 400
Balance -1260 / -1260 800 / 800
--- NOTE | 2023-09-05 10:27 | W.DCSUMMARY ---
Discharge Summary
Discharge Data
Date of Admission: 09/02/23
Date of Discharge: 09/05/23
-
Pending Results: No
Hospital Course
83-year-old female past medical history of recent pelvic fracture, GERD, PAD, PAD, hiatal hernia, presented with bradycardia. Patient was found to have bradycardia with Mobitz type II heart block. Patient was eval by cardiology. Patient had a
recent stress test as outpatient which was concerning for CAD and was started for Plavix. Troponin were checked and negative. Cardiology evaluated patient status post pacemaker implantation.Echo with stage II diastolic dysfunction, normal systolic
function without regional wall motion abnormality. Moderate to severe mitral stenosis. Patient with hyponatremia. Sodium improved to 129. Patient with leukocytosis which was deemed likely reactive in stress. Patient remained afebrile chest
x-ray was negative. No cough. Patient was eval by PT and OT will [facility]. Outpatient BMP and CBC was recommended.
Discharge Plan
-
Patient Disposition: Usp/SNF
Discharge Diagnosis/Procedures: Complete heart block status post pacemaker implant
Hyperkalemia
Hyponatremia
Condition: Fair
Diet: No added salt
Activity: With assistance and As tolerated
Driving Restrictions: No driving for 1 week
Bathing Restrictions: None
Blood Work: Repeat cbc and bmp in 3-5 days via primary doctor.
Stand Alone Forms: DC Inst - Implanted Device
Referrals:
Kaitlin Gavin CRNP [Specified Professional Personl] - 09/13/23 11:20 am (Post device incision check appointment)
Maya Mendez NP [Family Provider] - in less than 1 week
Prescriptions:
Continued
multivitamin [Daily-Maribel] Tablet
1 tab PO DAILY
atorvastatin [Lipitor] 40 mg Tablet
40 mg PO DAILY
acetaminophen [Tylenol] 325 mg Tablet
650 mg PO Q6HPRN PRN (Reason: mild pain)
lidocaine 4 % Adhesive Patch,Medicated
1 patch TOPICAL DAILY
albuterol sulfate 2.5 mg /3 mL (0.083 %) Solution For Nebulization
2.5 mg INHALATION R Q6HPRN PRN (Reason: sob)
polyethylene glycol 3350 [Miralax] 17 gram Powder In Packet
17 g PO DAILY
polyethylene glycol 3350 [Miralax] 17 gram Powder In Packet
17 g PO DAILYPRN PRN (Reason: if no bm in 72 hours)
sucralfate 100 mg/mL Suspension
10 ml PO TID
cyanocobalamin (vitamin B-12) 1,000 mcg Tablet
1,000 mcg PO DAILY
clopidogrel [Plavix] 75 mg Tablet
75 mg PO DAILY
acetaminophen [Tylenol Extra Strength] 500 mg Tablet
1,000 mg PO Q6HPRN PRN (Reason: mild pain)
magnesium hydroxide [Milk of Magnesia] 400 mg/5 mL Suspension
2,400 mg PO [id number] PRN (Reason: if no bm by 3rd day)
bisacodyl [Dulcolax (bisacodyl)] 10 mg Suppository
10 mg SC DAILYPRN PRN (Reason: if no bm aftr mom)
pantoprazole [Protonix] 40 mg Tablet,Delayed Release (Dr/Ec)
40 mg PO BID
Fleet Enema 19-7 gram/118 mL Enema
118 ml SC DAILYPRN PRN (Reason: if no bm aftr dulcolax)
docusate sodium [Colace] 100 mg Capsule
100 mg PO DAILY
ondansetron 4 mg Tablet,Disintegrating
4 mg PO Q4HPRN PRN (Reason: nausea)
cholecalciferol (vitamin D3) [Vitamin D3] 25 mcg (1,000 unit) Tablet
25 mcg PO DAILY
tramadol 25 mg Tablet
25 mg PO TID
Discontinued
methocarbamol 500 mg Tablet
500 mg PO QID
morphine concentrate 20 mg/mL Syringe
2.5 mg PO Q4HPRN PRN (Reason: increased resppiratory effort)
Discharge Orders:
Discharge Patient (As Directed); Ordered 09/05/23
Ordered By: Nicolas Benedict
Care Plan Goals
Care Plan Goals:
Problem: Readiness for enhanced knowledge related to diagnosis and treatment plan
Goal: Understand your diagnosis and treatment plan needs, including medications if applicable.
Instructions: Know your diagnosis, underlying causes and treatment plan options, including medications if applicable. Consult with your health care team to learn about your diagnosis and treatment plan, including medications if applicable.
Discharge Date and Time
Print Language: L[place]
[2023-09-05 12:35] VITALS: BP 134/73
--- NOTE | 2023-09-05 15:34 | PTCARENOTE ---
Pt discharged via wheelchair van to [facility]. Report called to Colleen at [phone]. Pt left w/her coat, shoes, cell phone & car repairman. Two copies of D/C instructions given to pt for her and her daughter, Jessica. Pacemaker booklet
found after pt left, so placed in an envelope and mailed to pt's address. Pt's daughter, Jessica called and advised of pt's leaving.
== END 2023-09-05 15:14 | DRG 243 ==
LOC: IVU 14:17
PROVIDERS: Internal Medicine Cardiovascular Disease; Physician Assistant Medical; ADMITTING PHYSICIAN Internal Medicine; ATTENDING PHYSICIAN Hospitalist; CONSULT PHYSICIAN Internal Medicine Cardiovascular Disease; EMERGENCY PHYSICIAN Emergency Medicine; FAMILY PHYSICIAN Nurse Practitioner Gerontology
PROC: 0JH606Z Insertion of Pacemaker, Dual Chamber into Chest Subcutaneous Tissue and Fascia, Open Approach (ICD-10-PCS; 2023-09-03)
PROC: 02HK3JZ Insertion of Pacemaker Lead into Right Ventricle, Percutaneous Approach (ICD-10-PCS; 2023-09-03)
PROC: 02H63JZ Insertion of Pacemaker Lead into Right Atrium, Percutaneous Approach (ICD-10-PCS; 2023-09-03)
DX: I44.2 Atrioventricular block, complete (principal); E87.1 Hypo-osmolality and hyponatremia; K21.9 Gastro-esophageal reflux disease without esophagitis; E87.5 Hyperkalemia
CPT/HCPCS: 33208; 71045; 80048; 80053; 83735; 83930; 83935; 84132; 84295; 84300; 84443; 84484; 85025; 87070; 93005; 93306; 97163; 97167; 99285; C1785; C1892; C1898